=== PATIENT | male | born 1980 | race African-American/Black ===

== ENCOUNTER 2018-01-13 22:59 | Emergency (ER) | payer SELFPAY ==
[~2018-01-13] VITALS: Ht 170.2 cm; Wt 88.5 kg
[~2018-01-13 22:59] MED LIST: CLARITIN10 MG PO; ERYT.5TO BOTHEYES; FUNGOID-D113 GM TOP; IBUP600 PO; LEVO750 PO; Norco 5-325 Ta1 EACH PO; PROAIR RESPICL90 MCG IH; Veetids 500500 MG PO
[2018-01-14] MEDS ORDERED: IBUP600 PO (01:07)
[2018-01-14] MEDS ORDERED: Amoxicillin500 MG PO (01:07)
== END 2018-01-14 01:27 | disposition home or self-care (01) ==
LOC: ER 22:59
DX: K02.9 Dental caries, unspecified (principal); F17.210 Nicotine dependence, cigarettes, uncomplicated
CPT/HCPCS: 99283